=== PATIENT | female | born 1945 | race Caucasian/White ===

== ENCOUNTER 2019-01-03 14:18 | Inpatient (IN) ==
[2019-01-03] MEDS ORDERED: NS 1,000 ML IV ONE (14:42)
[2019-01-03] MEDS ORDERED: ZOFRAN IV ONE ×2 (14:43→21:11)
--- NOTE | 2019-01-03 14:46 | PROVIDER DOCUMENTATION ---
HPI-Abdominal Pain/GI Problem - General Chief Complaint: General Adult Stated Complaint: NAUSEA X 5 DAYS Time Seen by Provider: 01/03/19 14:23 Source: patient, family (daughter at bedside) Allergies/Adverse Reactions: Patient Allergies Allergy/AdvReac Type Severity Reaction Status Date / Time codeine Allergy Unknown Verified 12/05/15 11:24 latex Allergy Unknown Verified 12/05/15 11:24 Sulfa (Sulfonamide Allergy Unknown Verified 12/05/15 11:24 Antibiotics) Home Medications: Home Medication List Medication Instructions Recorded Confirmed Last Taken Type Aspirin 81 mg PO DAILY 12/05/15 01/03/19 12/05/15 06:00 History 81 MG Atorvastatin Calcium 40 mg PO HS 12/05/15 01/03/19 12/04/15 21:00 History 40 MG Fluticasone 27.5 Mcg Nasal Spr 50 mcg INH BID 12/05/15 01/03/19 12/05/15 06:00 History [Veramyst Nasal Flom] 50 MCG Fluticasone/Salmet 500/50 INH 1 puff INH BID 12/05/15 01/03/19 12/05/15 06:00 History [Advair 500/50 Diskus] 1 PUFF Losartan Potassium 100 mg PO DAILY 12/05/15 01/03/19 12/05/15 06:00 History 100 MG Meloxicam [Mobic] 15 mg PO DAILY 12/05/15 01/03/19 12/05/15 06:00 History 15 MG Montelukast [Singulair] 10 mg PO DAILY 12/05/15 01/03/19 12/05/15 06:00 History 10 MG Tiotropium Ramona Inhaler 18 mcg INH DAILY 12/05/15 01/03/19 12/05/15 06:00 History [Spiriva] 18 MCG Albuterol Sulfate 0.63 mg INHALATION DAILY 01/03/19 01/03/19 Unknown History Albuterol Sulfate [Proair Hfa] 2 puff INH Q4-6H PRN PRN 01/03/19 01/03/19 Unknown History Eszopiclone [Lunesta] 1 mg PO HS PRN PRN 01/03/19 01/03/19 Unknown History Prednisone 5 mg PO DAILY 01/03/19 01/03/19 Unknown History - History of Present Illness-ABD Nature of Presenting Problems: 73 YO F pmh for COPD on continous o2, colostomy s/p emergent procedure for isch emia presents with c/o nausea x 5 days with one episode of vomiting and decreased PO intake and decreased ostomy output. Pt currently denies pain or sick contacts. Quality of Pain: reports: none Onset/Duration: reports: 5 days ago Timing: reports: still present, constant Activities at Onset: reports: none Exposure to sick contacts?: No Modifying Factors: improves with: nothing Associated Symptoms: reports: shortness of breath. denies: cough, diaphoresis, diarrhea, rash, seizure Last BM: 5 days ago Dark Stools Present?: reports: none noticed Review of Systems - Adult - REVIEW OF SYSTEMS - ADULT Constitutional: denies: chills, fever Eyes: reports: no symptoms reported Ears, Nose, Mouth & Throat: reports: no symptoms reported Cardiovascular: denies: chest pain, edema, palpitations, syncope Respiratory: reports: shortness of breath. denies: cough, wheezing Gastrointestinal: reports: nausea, poor appetite, vomiting Genitourinary: reports: no symptoms reported Musculoskeletal: reports: no symptoms reported Integumentary: reports: no symptoms reported Neurological: reports: other (weakness). denies: dizziness/vertigo, headache/migraines, loss of balance, syncope Endocrine: reports: no symptoms reported Hematologic/Lymphatic: reports: no symptoms reported Allergic/Immunologic: reports: no symptoms reported Past History - Adult - PAST MEDICAL HISTORY-ADULT Review of Records: reports: Medications Reviewed, Social history reviewed & non- contributory. Major Childhood Illnesses: reports: denies history Cardiovascular: reports: CHF, HTN, hyperlipidemia Respiratory: reports: COPD Gastrointestinal: reports: denies history Obstetrical/Gynecological: reports: denies history Genitourinary: reports: denies history Musculoskeletal: reports: denies history Neurological: reports: denies history Endocrine/Immune: reports: denies history Other Conditions: reports: denies history - PRIOR SURGERIES/PROCEDURES Surgical/Procedure History: denies: recent surgery - IMMUNIZATION STATUS Childhood Immunizations: See Nurse Assessment Flu Vaccine: See Nurse Assessment - FAMILY HISTORY Family History: reviewed, not pertinent - SOCIAL HISTORY Smoking: quit greater than 1 year Substance Use: denies Living Situation: family Physical Exam-General - PHYSICAL EXAM-ADULT Initial Vital Signs Reviewed: Yes - CONSTITUTIONAL General Appearance: thin - EYES Eyes: PERRL/EOMI, pink conjunctivae - HEAD, EARS, NOSE, MOUTH & THROAT HENMT: other (dry membranes) - NECK Neck: supple - RESPIRATORY Respiratory: normal breath sounds, no pleuratic chest pain, no respiratory distress, other (o2 by NC in place) - CARDIOVASCULAR Cardiovascular: tachycardia - GASTROINTESTINAL (ABDOMEN) Abdominal Exam: normal bowel sounds, soft, other (ostomy in place right side) - MUSCULOSKELETAL Extremity: normal range of motion - SKIN Integumentary: warm/dry - NEUROLOGIC Neurologic: grossly normal - PSYCHIATRIC Psych/Mental Status: normal mood/affect, oriented x 3 Progress - PLAN OF CARE/RESULTS Progress/Plan/Lab Results: Orders Category Date Time Status Saline Loc NOW Care 01/03/19 14:[address] ABDOMEN/PELVIS W/O CONTRAST [CT] Stat Exams 01/03/19 14:42 Ordered CBC WITH ELECTRONIC DIFF [HEME] Stat Lab 01/03/19 14:42 Uncollected COMPREHENSIVE METABOLIC PANEL [CHEM] Stat Lab 01/03/19 14:42 Uncollected TSH Stat Lab 01/03/19 14:42 Uncollected URINALYSIS W/POSS RFLX CULT [URINALYSIS] Stat Lab 01/03/19 14:42 Uncollected Ns 1000 ml IV Bolus X1 Med 01/03/19 14:42 Ordered 0.9% Sodium Chloride Inj [Ns] 1,000 ml IV 999 mls/hr Ondansetron [Zofran] Med 01/03/19 14:43 Once 4 mg IV NOW ONE EKG [EKG] Stat Ther 01/03/19 14:41 Ordered Result Diagrams: 01/03/19 15:20 01/03/19 15:20 - REASSESSMENT Reassessment #1 Time Reassessed: 16:50 Status: improving (pt with elevated HR, EKG showing Afib with RVR. Will give cardizem) Reassessment #2 Time Reassessed: 17:31 Status: improving (HR improved, now to 90s-100s. Pt NAD. Was given 10mg Cardizem) - EKG 1 Time of EKG reading by physician:: 15:50 EKG Read and Signed by:: Viktoriya Thornton EKG Interpretation (*Must complete 3 of following elements*): Abnormal Rate: 100 Rhythm: Sinus with PVCs [place]: normal QRS: PVC's NE Interval: normal ST Wave: non-specific ST changes 2 Time of EKG reading by physician:: 17:09 EKG Read and Signed by:: Viktoriya Thornton EKG Interpretation (*Must complete 3 of following elements*): Abnormal Rate: 158 Rhythm: Afib with RVR Prior EKG Comparison: changes noted - CONSULTS/PCP/HOSPITALIST Notification #1 *Consult/PCP/Hospitalist*: Dr. Matthews Time Discussed: 19:30 Consult Disposition: Will see in ED Departure - Departure Date of Disposition Decision: 01/03/19 Time of Disposition Decision: 18:47 DIAGNOSIS: Nausea, New onset a-fib, Atrial fibrillation with RVR Disposition: ADMITTED INPATIENT 09 Certified Medical Emergency: Emergent Condition: Stable Referrals and Follow-Ups: Jeff Hicks MD [Primary Care Provider] - - Critical Care Note This patient required my direct & personal management of CC.: No Attestation - Physician/ JANESSA Attestation The physician spent face to face time with patient:: Yes Advanced Practice Provider documentation review:: Supervising physician onsite and consulted in the evaluation and care of this patient. The physician did have a face to face encounter with the patient.
[2019-01-03 15:42] LABS: BASO# 0.03 X1000 (0.0-0.2); BASO% 0.4 % (0.0-0.8); EOS# 0.46 X1000 (0.0-0.7); EOS% 6.3 % (0.0-10.0); HEMATOCRIT 40.7 % (37.0-47.0); HEMOGLOBIN 12.9 g/dL (12.0-16.0); IMM GRAN# 0.02 X1000 (0.0-0.04); IMM GRAN% 0.3 % (0.0-0.5); LYMPH# 0.63 X1000 (1.2-3.4); LYMPH% 8.6 % (20.5-51.1); MCH 29.2 PG (27-31); MCHC 31.7 g/dL (33-37); MCV 92.1 FL (81-99); MONO# 0.82 X1000 (0.11-0.59); MONO% 11.2 % (1.7-9.3); MPV 9.6 FL (7.4-10.4); NEUT# 5.36 X1000 (1.4-6.5); NEUT% 73.2 % (42.2-75.2); PLT 276 X1000 (130-400); RBC 4.42 XMIL (4.2-5.4); WBC 7.32 X1000 (4.8-10.8)
[2019-01-03] MEDS ORDERED: CARDIZEM IV ONE (16:00)
[2019-01-03 16:09] LABS: AGAP 15; ALB/GLOB RATIO 2.2; ALBUMIN 4.3 g/dL (3.5-5.0); ALKALINE PHOSPHATASE 85 U/L (32-104); BUN 14 mg/dL (8-22); CALCIUM 9.2 mg/dL (8.8-10.2); CHLORIDE 98 mmol/L (98-107); COSMO 276; CREATININE 0.7 mg/dL (0.5-0.9); ESTIMATED GFR > 60; GLUCOSE 100 mg/dL (70-104); GOT 11 U/L (10-30); GPT 8 U/L (10-36); POTASSIUM 4.6 mmol/L (3.5-5.1); SODIUM 138 mmol/L (136-145); TCO2 25 mmol/L (25-35); TOTAL PROTEIN 6.3 g/dL (6.3-8.3)
[2019-01-03 16:29] LABS: URINE SOURCE CLEAN CATCH
[2019-01-03 16:39] LABS: BILIRUBIN URINE NEGATIVE (NEGATIVE); BLOOD URINE NEGATIVE (NEGATIVE); COLOR STRAW; GLUCOSE URINE NEGATIVE (NEGATIVE); KETONE URINE TRACE mg/dL (NEGATIVE); LEUKOCYTES URINE NEGATIVE (NEGATIVE); NITRITE URINE NEGATIVE (NEGATIVE); PROTEIN URINE NEGATIVE (NEGATIVE); SP GRAVITY URINE 1.006; TURBIDITY URINE CLEAR (CLEAR); UR EPITHELIAL CELLS <10 /HPF (<10); URINE BACTERIA NEGATIVE /HPF; URINE RBC <10 /HPF (<10); URINE WBC <10 /HPF (<10); UROBILINOGEN URINE NORMAL (NORMAL)
--- NOTE | 2019-01-03 17:42 | EKG Report ---
Test Performed on : 01/03/2019 3:50:25 PM Test Reason : CP Blood Pressure : / mmHG Vent. Rate : 100 BPM Atrial Rate : 100 BPM P-R Int : 126 ms QRS Dur : 076 ms QT Int : 342 ms P-R-T Axes : 082 063 071 degrees QTc Int : 441 ms Sinus rhythm. with occasional premature ventricular complexes. Biatrial enlargement Abnormal ECG When compared with ECG of 05-DEC-2015 15:39, No significant change was found Unconfirmed Result
--- NOTE | 2019-01-03 17:59 | Diag Imaging Result Doc PS360 ---
EXAM: CT ABDOMEN/PELVIS W/O CONTRAST HISTORY: nausea/vomiting TECHNIQUE: CT abdomen and pelvis without contrast COMPARISON: None. FINDINGS: No focal hepatic normality identified on this noncontrasted exam. There are scattered hepatic and splenic granuloma. The spleen measures 14 cm in length. No inflammation about the pancreas. The gallbladder is contracted. Normal adrenal glands. There are nonobstructing left renal stones. No right renal stones. No hydronephrosis. Prominent atherosclerosis. There is an ostomy in the right lower quadrant. The bowel loops are not dilated. Urinary bladder is distended and appears normal. There is a right adnexal cyst measuring 4.2 cm. Trace fluid in the pelvis. Uterus is small. Scoliosis with degenerative spine changes. 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 IMPRESSION: 1.Severe atherosclerosis 2.Mild splenomegaly 3.Nonobstructing left renal stones 4.Right ovarian cyst 5.Right hip arthritis as well as scoliosis and degenerative spine changes This exam was performed using automated exposure control, adjustment of mA or kV according to patient size, and/or use of iterative reconstruction technique. Electronically signed by Prashanth Messer 01/03/2019 5:55 PM
[2019-01-03] MEDS ORDERED: CARDIZEM PO ONE (20:13)
[2019-01-03] MEDS ORDERED: MYLICON DROPS PO STA (20:20)
[2019-01-03] MEDS: LIPITOR PO SCH (21:21)
[2019-01-03] MEDS ORDERED: VERAMYST NASAL SPRAY NAS SCH (21:21)
[2019-01-03] MEDS ORDERED: LUNESTA PO PRN (21:21)
[2019-01-03] MEDS: ADVAIR 500/50 DISKUS INH SCH (21:21)
[2019-01-03] MEDS ORDERED: VENTOLIN HFA INH PRN (21:21)
--- NOTE | 2019-01-03 21:31 | HISTORY AND PHYSICAL ---
Patient of Dr. Hicks. REASON FOR ADMISSION: Intractable nausea, vomiting for the last 5 days. HISTORY OF PRESENT ILLNESS: Ms. Jo Montague 73-year-old woman with past medical of end-stage COPD, hypertension, hyperlipidemia, hyperparathyroidism, I believe primary hyperparathyroidism, who comes in complaining of nausea, vomiting. The latter has stopped 4 days ago but the nausea has been going on for close to a week. During the time she was vomiting she did not have any coffee grounds or hematemesis. Oddly enough she denies any abdominal pain, no fever, no chills. Says that the nausea gets worse after meals and but she has not thrown up since but has lost appetite altogether because of this. No diarrhea. No genitourinary complaints. No cardiorespiratory complaints except she has chronic dyspnea which has not worsened. No orthopnea, PND. No chest pain, no palpitations or lightheadedness. While patient was in the ER it was noted her heart rate was in the 120s to 160s and close inspection was found to be atrial fibrillation. She was given 20 mg of IV Cardizem and currently rate now in the 90s and in normal sinus rhythm with occasional PVCs. Patient says after she received some Zofran and fluids she feels a little better but still denies any cardiorespiratory complaints. No leg swelling or extremity redness or pain. No recent surgery or travel. REVIEW OF SYSTEMS: 12 system review was only notable for poor urine output and stool output in her colostomy bag. Patient denies any contacts. No change in her home medications. Otherwise positive findings noted as per HPI. ALLERGIES: Codeine, latex, sulfa. HOME MEDICATIONS: She is on albuterol nebulizer treatments daily, Advair 550 inhaler 1 puff b.i.d., atorvastatin 40 mg at bedtime, aspirin 81 mg daily, losartan 100 mg daily, Lunesta 1 mg p.r.n., meloxicam 15 mg daily, prednisone 5 mg daily, Singulair 10 mg daily, Spiriva 1 puff daily and Veramyst 1 b.i.d. 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 FAMILY HISTORY: Notable for no heart disease or diabetes. SOCIAL HISTORY: Does not smoke, drink, use drugs, stopped smoking over 5 years ago. LAB WORK: EKG reviewed by me the 1 EKG I reviewed just showed normal sinus rhythm with biatrial enlargement, normal axis deviation. CT scan done for nausea and vomiting showed severe atherosclerosis, mild splenomegaly, nonobstructive renal stones, right hip arthritis as well as scoliosis. Other lab work white count 7000, hemoglobin and hematocrit 12 and 40, platelets 276,000, BUN 14, creatinine 0.7 . Urinalysis, trace ketones. EXAMINATION: Chronically ill elderly woman in no acute distress. Blood pressure 141/69, heart rate 80, respirations 21, temperature 98.3, she is 99% on 2 L.HEENT: Head is normocephalic, atraumatic. JOEL, EOMI. She is anicteric and not pale, exam today notable for mild to moderate xerostomia. Some cyanosis. Neck: Supple. No JVD or carotid bruit. No thyromegaly. Chest: Decreased entry in both lung may with decreased wheezes in the right lower base. Cardiovascular: First, 2nd sounds heard. No gallops, murmurs, rub. Rhythm is regular with occasional skipped beats. Abdomen: Full, soft with an ostomy bag in the right lower quadrant area. No tenderness at this day. Bowel sounds are hyperactive. Rectal: Deferred at this time. Extremities: Patient has good distal pulse volumes which are regular with occasional skipped beats. No edema, clubbing, peripheral cyanosis. Neuro: No gross focal deficits. Skin: Intact. No breakdown, lesion, erythema. Musculoskeletal: Patient is diffusely sarcopenic. ASSESSMENT: At this time 1. Paroxysmal atrial fibrillation now in sinus rhythm. 2. Hypertension . 3. Chronic obstructive pulmonary disease end-stage. 4. Intractable nausea, vomiting. 5. History of hyperparathyroidism primary. 6. Seasonal allergic rhinitis. 7. Hyperlipidemia. 8. Peripheral arterial disease PLAN: For now based on patient's EZ/VASC score, she will be a candidate for oral anticoagulation. Currently patient is in sinus rhythm and this is after she received 20 mg of Cardizem. The patient is at risk for atrial fibrillation based on the fact that she has biatrial enlargement as evidenced on the EKG. She also has diffuse arthrosclerotic disease and probably has coronary artery disease. I did hold meloxicam and aspirin because I started Eliquis and I do not know how she responds to this I want to keep her risk of bleeding to a minimum. If she is not actively bleeding I recommend start her back on aspirin. Ordered echocardiogram. She will be admitted to our PVC unit and will consult Dr. Díaz, distribution superintendent trigonometry tutor to see her for further input. In the interim I put her on Cardizem 60 mg t.i.d. and this can be transitioned to long-acting Cardizem during the course of her stay. cc: Jeff Hicks MD
[2019-01-03] MEDS ORDERED: AMBIEN PO PRN (22:16)
[2019-01-04] MEDS: ELIQUIS PO SCH ×3 (00:16→22:04)
[2019-01-04 07:30] LABS: BASO# 0.03 X1000 (0.0-0.2); BASO% 0.4 % (0.0-0.8); EOS# 0.74 X1000 (0.0-0.7); EOS% 9.5 % (0.0-10.0); HEMOGLOBIN 12.7 g/dL (12.0-16.0); IMM GRAN# 0.03 X1000 (0.0-0.04); IMM GRAN% 0.4 % (0.0-0.5); LYMPH# 0.98 X1000 (1.2-3.4); LYMPH% 12.6 % (20.5-51.1); MCH 29.3 PG (27-31); MCHC 31.8 g/dL (33-37); MCV 92.2 FL (81-99); MONO# 0.96 X1000 (0.11-0.59); MONO% 12.3 % (1.7-9.3); MPV 9.8 FL (7.4-10.4); NEUT# 5.04 X1000 (1.4-6.5); NEUT% 64.8 % (42.2-75.2); PLT 287 X1000 (130-400); RBC 4.34 XMIL (4.2-5.4); WBC 7.78 X1000 (4.8-10.8)
[2019-01-04] MEDS: ADVAIR 500/50 DISKUS INH SCH ×2 (07:42→20:11)
[2019-01-04] MEDS: SPIRIVA INH SCH (07:45)
--- NOTE | 2019-01-04 07:59 | EKG Report ---
Test Performed on : 01/03/2019 5:09:57 PM Test Reason : ED. NO EKG ORDER FOR MUSE Blood Pressure : / mmHG Vent. Rate : 158 BPM Atrial Rate : 159 BPM P-R Int : 000 ms QRS Dur : 070 ms QT Int : 292 ms P-R-T Axes : 000 054 109 degrees QTc Int : 473 ms Atrial fibrillation. with rapid ventricular response. Septal infarct , age undetermined Abnormal ECG When compared with ECG of 03-JAN-2019 15:50, (Unconfirmed) Atrial fibrillation. has replaced Sinus rhythm. Vent. rate has increased BY [address] now depressed in Anterior leads Nonspecific T wave abnormality now evident in Lateral leads Unconfirmed Result
[2019-01-04 08:00] LABS: AGAP 15; BUN 8 mg/dL (8-22); CALCIUM 8.7 mg/dL (8.8-10.2); CHLORIDE 102 mmol/L (98-107); COSMO 281; CREATININE 0.7 mg/dL (0.5-0.9); ESTIMATED GFR > 60; GLUCOSE 92 mg/dL (70-104); POTASSIUM 3.7 mmol/L (3.5-5.1); SODIUM 142 mmol/L (136-145); TCO2 25 mmol/L (25-35)
[2019-01-04] MEDS: ZOFRAN IV PRN ×4 (08:15→22:04)
[2019-01-04] MEDS: CARDIZEM PO SCH ×3 (08:19→16:56)
[2019-01-04] MEDS: SINGULAIR PO SCH (08:20)
[2019-01-04] MEDS: TYLENOL PO PRN (08:20)
[2019-01-04] MEDS: PREDNISONE PO SCH (08:21)
[2019-01-04] MEDS ORDERED: MYLICON DROPS PO SCH (09:00)
[2019-01-04] MEDS ORDERED: SPIRIVA INH SCH (09:00)
[2019-01-04] MEDS: FLONASE NAS SCH ×2 (09:07→20:10)
[2019-01-04] MEDS: ALBUTEROL NEB INH PRN (11:16)
--- NOTE | 2019-01-04 11:25 | EKG Report ---
Test Performed on : 01/04/2019 11:45:06 AM Test Reason : afib Blood Pressure : / mmHG Vent. Rate : 084 BPM Atrial Rate : 084 BPM P-R Int : 120 ms QRS Dur : 084 ms QT Int : 360 ms P-R-T Axes : 081 062 074 degrees QTc Int : 425 ms Normal sinus rhythm. Normal ECG When compared with ECG of 04-JAN-2019 11:42, (Unconfirmed) aberrant conduction. is no longer present Unconfirmed Result
--- NOTE | 2019-01-04 13:05 | EKG Report ---
Test Performed on : 01/04/2019 12:55:21 PM Test Reason : Afib RVR Blood Pressure : / mmHG Vent. Rate : 088 BPM Atrial Rate : 088 BPM P-R Int : 122 ms QRS Dur : 080 ms QT Int : 348 ms P-R-T Axes : 081 067 072 degrees QTc Int : 421 ms Normal sinus rhythm. Right atrial enlargement Minimal voltage criteria for LVH, may be normal variant Borderline ECG When compared with ECG of 04-JAN-2019 11:45, (Unconfirmed) No significant change was found Unconfirmed Result
[2019-01-04] MEDS ORDERED: MAGNESIUM SULFATE 2 GM/S.W.I. 2 GM/50 ML IVPB IV ONE (13:36)
--- NOTE | 2019-01-04 14:09 | PROGRESS NOTE ---
DATE: 01/04/2019 SUBJECTIVE: This patient seems to be feeling better compared with yesterday. She seems to be tolerating p.o. at this moment, I have modified some of her medications especially the night medications. She takes Lunesta at home instead of Ambien. I will continue to monitor this patient closely. She is in normal sinus rhythm at this moment but she was on atrial fibrillation/flutter. OBJECTIVE: Vital Signs: Temperature 98.4 degrees, pulse 84, respiratory rate 22, blood pressure 165/61, oxygen saturation 100% on 2 L of nasal cannula. HEENT: Head normocephalic, no trauma. PERRLA. Neck: Supple. No JVD. No masses. Central trachea. Chest: Decreased breath sounds globally with prolonged expiratory phase. No wheezing. Abdomen: Soft, nontender, nondistended. She has an ostomy bag. Extremities: No edema, no clubbing, no cyanosis. Decreased muscle mass. Neurologic: The patient is alert, she is oriented x3. No focal deficits. LABORATORY: WBC 7.7, hemoglobin 12.7, hematocrit 40, platelet count 287,000. Sodium 142, potassium 3.7, chloride 102, bicarbonate 25, BUN 8, creatinine 0.7, glucose 92, calcium 8.7, magnesium 1.3. ASSESSMENT AND PLAN: 1. Paroxysmal atrial fibrillation now in sinus rhythm after getting treatment, Cardiology Department already evaluated this patient. We will continue with anticoagulation and p.o. treatment, no intervention at this moment. 2. Hypomagnesemia. I will replace the magnesium. 3. Hypertension. Continue with same management. 4. End-stage chronic obstructive pulmonary disease. Continue with her home medications. 5. Intractable nausea and vomiting, she seems to be better. We will continue with same management for now. She is tolerating a little bit p.o. 6. History of hyperparathyroidism aware. 7. Seasonal allergic rhinitis, aware. 8. Hyperlipidemia. Continue with same management. 9. Peripheral vascular disease aware. 10. 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 cc: Neno Quinn MD
--- NOTE | 2019-01-04 14:50 | CONSULTATION ---
DATE OF CONSULTATION: 01/04/2019 IMPRESSION: 1. Atrial flutter with rapid ventricular rate of unclear duration. She was noted to have tachycardia more than a week ago but she does not have palpitations. Patient has spontaneously converted back to sinus rhythm. 2. Presenting symptom of nausea and vomiting a few times of unclear etiology. 3. Severe chronic obstructive pulmonary disease requiring chronic home oxygen. 4. Hyperlipidemia. 5. Hypertension. 6. Peripheral vascular disease. Patient is status post bowel resection for mesenteric ischemia. RECOMMENDATIONS: 1. Continue Cardizem for rate control in the event of recurrent atrial flutter. 2. Consider anticoagulation given her Josh's Vasc score is 3. Given suspected longer duration of her atrial flutter episode, it would appear prudent to go ahead and start on anticoagulation as you have done. 3. Echocardiography. 4. Conservative cardiovascular management overall. HISTORY: This 73-year-old white female with past history of severe COPD, hypertension and hyperlipidemia was admitted through the emergency room because of atrial flutter with rapid ventricular rate. She presented with a five-day history of nausea as well as a few episodes of vomiting that just would not stop. She denies palpitations. However she does relate that of about 2 weeks ago she was in a clinic and was noted to have tachycardia that was fairly significant. She was advised to have follow up with primary but elected not to do so. After presenting here she was started on intravenous Cardizem and has spontaneously converted back to sinus rhythm. Her nausea symptoms have improved although she questions whether may be related to her getting anti emetics. She has no history of coronary disease nor angina. She does a he would have a history of peripheral artery disease. She is status post bowel resection for mesenteric ischemia in 2011. She has history of significant weight loss over several years. PAST MEDICAL HISTORY: 1. Severe chronic obstructive pulmonary disease. 2. Hypertension. 3. Hyperlipidemia. 4. Hyperparathyroidism. 5. Peripheral vascular disease and ischemic bowel disease. PAST SURGICAL HISTORY: Partial colectomy. For ischemic bowel disease. She still has colostomy. ALLERGIES: She is allergic or intolerant to codeine latex and sulfa. MEDICATIONS PRIOR TO ADMISSION: As listed. SOCIAL HISTORY: She is . 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 She lives at home. She quit smoking after smoking perhaps 40 years at a rate of 1 pack of cigarettes per day. She does not use alcohol. FAMILY HISTORY: Negative for premature coronary disease. REVIEW OF SYSTEMS: Pulmonary: Noteworthy for chronic dyspnea. There has been no recent cough. Gastrointestinal: Noteworthy for nausea as well as a few episodes of emesis as noted in the history of present illness. GI review of systems otherwise negative. Constitutional: Review of systems noncontributory. Remainder of review of systems negative/noncontributory with 14 total systems reviewed. PHYSICAL EXAMINATION: General: This is a thin elderly white female in no distress on supplemental oxygen per nasal cannula. Vital signs: Blood pressure 161/68, heart rate 96 and regular with ECG monitor showing sinus rhythm. HEENT: Extraocular muscles appear intact. Mucous membranes are moist. Neck: Supple without jugular venous distention. There are no carotid bruits. Chest: Clear to auscultation bilaterally. Cardiac Exam: Reveals a regular rate and rhythm without appreciable murmur or gallop. Abdomen: Soft. Bowel sounds are normal. Extremities: Without edema. Neurologic: Reveals her to be alert and fully oriented. Speech is fluent. She moves all 4 extremities equally well. Skin: Warm and dry. Psychiatric: Reveals her mood to be appropriate. PERTINENT DATA: Twelve lead EKG obtained on present presentation emergency room demonstrates sinus rhythm with frequent premature supraventricular complexes with aberrancy and an biatrial enlargement. Repeat 12 lead electrocardiogram 01/03/2019 demonstrates atrial flutter with rapid ventricular rate and nonspecific ST and T-wave abnormality. Twelve lead electrocardiogram today shows sinus rhythm and is within normal limits. LABORATORY DATA: Includes a white blood cell count of 7.7, hematocrit 40, hemoglobin 12.7, platelet count 287,000. Sodium 142, potassium 3.7, chloride 102, carbon dioxide 25, BUN 8, creatinine 0.7. Magnesium 1.3. AST 11, ALT 8, alkaline phosphatase 85, troponin T less than 0.01. Followup troponin T less than 0.01. TSH 0.9. Albumin 4.3, cc: Patricio Aleman MD
--- NOTE | 2019-01-04 21:01 | ECHO REPORT ---
ORDER DATE: 01/03/2019 INTERPRETING PHYSICIAN: Dr. Díaz CLINICAL INDICATIONS: A 73-year-old female with atrial fibrillation. M-MODE MEASUREMENTS: Left ventricle end diastole: 3.3 cm. Left ventricle end systole: 2.8 cm. Posterior wall: 0.7 cm. Interventricular septum: 0.7 cm. Left atrium: 2.8 cm. Aortic diameter: 2.5 cm. These are approximate measurements. The study is difficult. SUMMARY OF 2-DIMENSIONAL IMAGIN. The left ventricular systolic function is normal. Ejection fraction of 58%. 2. The left atrium is not dilated. 3. The right-sided chambers appear to be normal. 4. There is no pericardial effusion. 5. The mitral annulus shows calcification. Color flow mapping of the mitral valve is unremarkable. 6. Pulsed wave Doppler of mitral inflow shows normal E/A ratio. 7. Tissue Doppler of septal and lateral mitral annulus was not obtained. 8. The pulmonary venous flow appears to be normal. The pulmonic valve is not well visualized. The Doppler signal of the pulmonic valve is unremarkable. 9. The aortic valve looks grossly normal. Color flow mapping unremarkable. 10.The tricuspid valve showed no significant regurgitation. The inferior vena cava is not dilated. 11.The pulmonary pressure may be within normal range. There is question of increased thickness of the right ventricular inferior wall suggesting mild degree of right ventricular hypertrophy. CONCLUSIONS: In summary, this study was difficult. The left ventricular systolic function is normal. There is calcification of the mitral annulus with no significant mitral regurgitation. Pulmonary pressure cannot be properly measured here. Aortic valve is unremarkable. Question of right ventricular hypertrophy of mild degree. Clinical correlation is recommended. cc: MD Neno Day MD
[2019-01-04] MEDS: LUNESTA PO PRN (22:04)
[2019-01-04] MEDS: LIPITOR PO SCH (22:04)
[2019-01-05] MEDS: TYLENOL PO PRN ×3 (02:42→21:34)
[2019-01-05 06:03] LABS: AGAP 10; BUN 8 mg/dL (8-22); CALCIUM 8.5 mg/dL (8.8-10.2); CHLORIDE 101 mmol/L (98-107); COSMO 279; CREATININE 0.6 mg/dL (0.5-0.9); ESTIMATED GFR > 60; GLUCOSE 95 mg/dL (70-104); MAGNESIUM 1.8 mg/dL (1.5-2.7); PHOSPHORUS 2.3 mg/dL (2.7-4.5); SODIUM 141 mmol/L (136-145); TCO2 30 mmol/L (25-35)
[2019-01-05] MEDS: ZOFRAN IV PRN ×4 (07:14→21:34)
[2019-01-05] MEDS: FLONASE NAS SCH (08:03)
[2019-01-05] MEDS: ELIQUIS PO SCH ×2 (08:03→21:34)
[2019-01-05] MEDS: CARDIZEM PO SCH ×2 (08:03→12:26)
[2019-01-05] MEDS: PREDNISONE PO SCH ×2 (08:03→08:05)
[2019-01-05] MEDS: SINGULAIR PO SCH (08:03)
[2019-01-05] MEDS: COZAAR PO SCH (10:19)
[2019-01-05] MEDS: PROTONIX PO SCH (10:19)
[2019-01-05] MEDS: SPIRIVA INH SCH (11:28)
[2019-01-05] MEDS: ADVAIR 500/50 DISKUS INH SCH ×2 (11:28→20:00)
[2019-01-05] MEDS: ALBUTEROL NEB INH PRN (11:28)
--- NOTE | 2019-01-05 14:22 | PROGRESS NOTE ---
DATE: 01/05/2019 INTERVAL HISTORY: The patient converted back to normal sinus rhythm yesterday, has remained in normal sinus rhythm overnight. Some nausea but no further vomiting with breakfast this morning. Reports feeling of bloating and a lot of gas. No other acute events. No other new complaints. LABORATORY: Basic metabolic panel unremarkable. VITALS: T-max 98.3 degrees, pulse 89, respirations 19, blood pressure 174/64, and O2 saturation 99% on 2 L by nasal cannula. PHYSICAL EXAMINATION: General: No acute distress. Vitals: As above. HEENT: Normocephalic, atraumatic. Moist mucous membranes. No cervical adenopathy. Cardiovascular: Regular rate and rhythm currently. No murmurs noted. Pulmonary: Clear to auscultation bilaterally. No wheezing, rales, or rhonchi. Abdomen: Soft, nontender, nondistended. Bowel sounds positive. Extremities: Peripheral pulses intact. No clubbing or cyanosis. Neurologic: Cranial nerves grossly intact. No focal deficits. Psychiatric: Awake, alert, and oriented x3. Skin: No new appearing rashes or lesions noted. ASSESSMENT AND PLAN: 1. Paroxysmal atrial fibrillation with rapid ventricular response. Medications adjusted by Cardiology. Patient back in normal sinus rhythm overnight and this morning. Continue p.o. medicines and anticoagulation, but pending further Cardiology, Cardiology recommendations. She may not need any further intervention for this. 2. Nausea and vomiting. The patient presented initially with nausea and some vomiting. Improved initially with Zofran but, her nausea has recurred today. She does report significant bloating and feelings of gas, so we will try on simethicone and Protonix an,d see if that fixes it. If she continues to have nausea, then may have to get GI involved. 3. Hypertension. Restart home losartan and monitor. 4. Hyperlipidemia. Continue home atorvastatin. 5. Chronic hypoxic respiratory failure, chronic obstructive pulmonary disease. Stable. Monitor.
[2019-01-05] MEDS ORDERED: CARDIZEM CD PO ONE (14:39)
--- NOTE | 2019-01-05 15:06 | PROGRESS NOTE ---
DATE: 01/05/2019 SUBJECTIVE: The patient has had some recurrent nausea, although she remains in sinus rhythm without recurrence of atrial flutter. There has been no chest pain. OBJECTIVE: Vital Signs: Blood pressure 174/64, heart rate 89, oxygen saturation 99% on nasal cannula oxygen at 2 L per minute. There is no significant jugular venous distention. Chest is clear to auscultation bilaterally. Cardiac Examination: Reveals a regular rate and rhythm without appreciable murmur or gallop. Extremities are without edema. Laboratory Data: Includes a sodium of 141, potassium 4.0, chloride 101, carbon dioxide 30, BUN 8, creatinine 0.6, glucose 95, magnesium 1.8. IMPRESSION: 1. Recent atrial flutter with rapid ventricular rate. Patient spontaneously converted back to sinus rhythm. 2. Recurrent nausea of unclear etiology. 3. Hypertension. Blood pressure elevated. 4. Hyperlipidemia. 5. Severe chronic obstructive pulmonary disease requiring chronic home oxygen. 6. Peripheral vascular disease. RECOMMENDATIONS: 1. Agree with resuming losartan for improvement in blood pressure management. 2. Transition Cardizem to long-acting preparation. 3. Continue anticoagulation. 4. Observe as an inpatient on telemetry another 24 hours. cc: Patricio Aleman MD
[2019-01-05] MEDS: MYLICON DROPS PO PRN (16:40)
[2019-01-05] MEDS: LUNESTA PO PRN (21:34)
[2019-01-05] MEDS: LIPITOR PO SCH (21:34)
[2019-01-06] MEDS: FLONASE NAS SCH ×2 (02:10→08:40)
[2019-01-06] MEDS: MYLICON DROPS PO PRN ×2 (05:33→10:36)
[2019-01-06] MEDS: ZOFRAN IV PRN ×3 (05:33→14:38)
[2019-01-06] MEDS: PROTONIX PO SCH ×2 (05:33→07:46)
[2019-01-06] MEDS: PREDNISONE PO SCH (08:39)
[2019-01-06] MEDS: COZAAR PO SCH (08:40)
[2019-01-06] MEDS: ELIQUIS PO SCH (08:40)
[2019-01-06] MEDS: TYLENOL PO PRN (08:48)
[2019-01-06] MEDS: SINGULAIR PO SCH (08:48)
[2019-01-06] MEDS ORDERED: CARDIZEM CD PO SCH (09:00)
[2019-01-06] MEDS: SPIRIVA INH SCH (11:26)
[2019-01-06] MEDS: ADVAIR 500/50 DISKUS INH SCH (11:26)
[2019-01-06 11:50] VITALS: BP 149/60
--- NOTE | 2019-01-09 14:23 | DISCHARGE SUMMARY ---
ADMISSION DATE: 01/03/2019 DISCHARGE DATE: 01/06/2019 CONSULTATIONS: Dr. Aleman. PERTINENT STUDIES: CT abdomen and pelvis with a lot of arthritis, but no acute process. Echocardiogram with normal EF. No significant valvular pathology. WBC and hemoglobin within normal limits. Complete metabolic panel unremarkable. Urinalysis unremarkable. DISCHARGE DIAGNOSES: 1. Nausea and vomiting. 2. Paroxysmal atrial fibrillation with rapid ventricular response. 3. Hypertension. 4. Hyperlipidemia. 5. Chronic obstructive pulmonary disease. 6. Chronic hypoxic respiratory failure HOSPITAL COURSE: The patient presented initially with complaints of nausea and occasional vomiting. Denied abdominal pain, fever, chills, diarrhea. Was worse with meals. Initial GI workup was unremarkable, but the patient was noted in the ER to have an elevated heart rate and was found to be in atrial fibrillation. She was admitted for further evaluation, was given IV Cardizem, which did control her rate. Cardiology was involved and adjusted her medications. She was transitioned to oral long-acting Cardizem. She was continued on anticoagulation. On long- acting Cardizem, she remained largely in normal sinus rhythm actually, but heart rate remained controlled even during brief episodes of atrial fibrillation/flutter. Patient had no vomiting but did have continued nausea until simethicone and Protonix were added which did resolve her symptoms. She was eating well. Her oxygen requirements remained stable. As patient's symptoms had resolved and her atrial fibrillation remained controlled, she was discharged home to follow up with PCP and Cardiology. DISCHARGE VITAL SIGNS: Temperature 99.2 degrees, pulse 85, respirations 17, blood pressure 149/60, O2 saturation 100% on 2 L by nasal cannula. DISCHARGE DIET: Cardiac. DISCHARGE MEDICATIONS: Advair inhaler b.i.d., atorvastatin 40 mg p.o. at bedtime, losartan 100 mg p.o. daily, Lunesta 1 mg p.o. at bedtime as needed prednisone as previously prescribed, albuterol inhaler as needed, Singulair 10 mg p.o. daily, Spiriva 18 mcg inhaled daily, fluticasone nasal spray b.i.d. as needed, albuterol nebulizer as needed, diltiazem CD 240 mg daily, Eliquis 5 mg p.o. b.i.d., Mobic 15 mg p.o. daily as needed, simethicone as needed, Protonix 40 mg p.o. daily, Zofran 4 mg ODT q.6 hours p.r.n. FOLLOWUP AND PLAN: The patient discharging home with simethicone on Protonix for her dyspepsia, on diltiazem and Eliquis for her atrial fibrillation. The patient to follow up with PCP and Cardiology. TIME SPENT: Greater than 30 minutes spent arranging discharge and counseling patient.
== END 2019-01-06 15:23 | disposition home or self-care (01) | DRG 309 ==
LOC: SUPCPDRO → ED 14:18 → 2N 22:46 → SUATTDRO 22:46
PROVIDERS: ATTEND Internal Medicine